=== PATIENT | female | born 1970 | race African-American/Black ===

== ENCOUNTER 2016-09-06 11:47 | Outpatient (CLI) | payer BC, MEDICAID ==
[2016-09-06 12:40] LABS: Hemoglobin A1c 11.1 % (4.0-6.0)
[2016-09-06 13:32] LABS: ALT (SGPT) 10 U/L (0-55); AST (SGOT) 17 U/L (5-34); Albumin 2.7 g/dL (3.5-5.0); Alkaline Phosphatase 133 U/L (40-150); Anion Gap 15 mmol/L (10-20); BUN (Urea Nitrogen) 16 mg/dL (7.0-18.7); Bilirubin, Total Less than 0.3 mg/dL (0.2-1.2); Calc. Creatinine Clearance 0 mL/min (70-130); Calcium 9.1 mg/dL (7.8-10.44); Carbon Dioxide 22 mmol/L (22-29); Cardiac Risk 3.1 (Less than 4.5); Chloride 103 mmol/L (98-107); Cholesterol 172 mg/dL (< 200 Desired); Estimated GFR-MDRD 72; Glucose 304 mg/dL (70-105); HDL Cholesterol 55 mg/dL (>60 Neg Risk); LDL Cholesterol, Calculated 92 mg/dL; Potassium 4.3 mmol/L (3.5-5.1); Protein, Total 6.7 g/dL (6.0-8.3); Sodium 136 mmol/L (136-145); Triglycerides 123 mg/dL (Less than 150)
[2016-09-06 18:56] LABS: Creatinine, Urine 84.65 mg/dL (47-110)
[2016-09-06 19:02] LABS: Protein, Urine Random Quant 684 mg/dL
[2016-09-06 19:03] LABS: Microalbumin Urine Greater than 200.0 mg/dL (0.5-50.0); Microalbumin/Creat Ratio 2362.7 mg/g (Less than 30)
== END 2016-09-06 11:48 | disposition home or self-care (01) ==
LOC: MADLABBHPM 11:47
PROVIDERS: ATTEND Internal Medicine Nephrology
DX: N18.1 Chronic kidney disease, stage 1 (principal); E11.65 Type 2 diabetes mellitus with hyperglycemia
CPT/HCPCS: 36415; 80053; 80061; 82043; 83036; 84156

== ENCOUNTER 2016-11-24 07:41 | Outpatient (CLI) | payer BC ==
[2016-11-24 17:32] LABS: Creatinine, Urine 119.51 mg/dL (47-110)
== END 2016-11-24 07:42 | disposition home or self-care (01) ==
LOC: MADLAB 07:41
PROVIDERS: ATTEND Family Medicine
DX: N18.1 Chronic kidney disease, stage 1 (principal); R80.9 Proteinuria, unspecified
CPT/HCPCS: 36415; 82570; 84156

== ENCOUNTER 2017-03-16 08:16 | Outpatient (CLI) | payer BC ==
[2017-03-16 13:55] LABS: Anion Gap 14 mmol/L (10-20); BUN (Urea Nitrogen) 16 mg/dL (7.0-18.7); Calc. Creatinine Clearance 0 mL/min (70-130); Calcium 9.7 mg/dL (7.8-10.44); Carbon Dioxide 22 mmol/L (22-29); Chloride 106 mmol/L (98-107); Estimated GFR-MDRD 88; Glucose 147 mg/dL (70-105); Potassium 3.9 mmol/L (3.5-5.1); Sodium 138 mmol/L (136-145)
== END 2017-03-16 08:17 | disposition home or self-care (01) ==
LOC: MADLAB 08:16
PROVIDERS: ATTEND Internal Medicine Nephrology
DX: N18.1 Chronic kidney disease, stage 1 (principal)
CPT/HCPCS: 36415; 80048

== ENCOUNTER 2017-03-18 02:42 | Emergency (ER) | payer BC ==
[2017-03-18] MEDS ORDERED: HYDROcodone/Acetaminophen 10/325 mg Tablet ONE (03:10)
[2017-03-18] MEDS ORDERED: predniSONE 20 MG TAB ONE (03:10)
== END 2017-03-18 03:21 | disposition home or self-care (01) ==
LOC: MADERS 02:42
DX: M54.42 Lumbago with sciatica, left side (principal); E11.9 Type 2 diabetes mellitus without complications; I10 Essential (primary) hypertension; Z79.4 Long term (current) use of insulin; Z79.899 Other long term (current) drug therapy; Z79.82 Long term (current) use of aspirin
CPT/HCPCS: 99283; J7506

== ENCOUNTER 2017-11-28 09:57 | Outpatient (CLI) | payer BC ==
[2017-11-28 11:21] LABS: Anion Gap 17 mmol/L (10-20); BUN (Urea Nitrogen) 67 mg/dL (7.0-18.7); Calc. Creatinine Clearance 0 mL/min (70-130); Calcium 9.4 mg/dL (7.8-10.44); Carbon Dioxide 23 mmol/L (22-29); Chloride 104 mmol/L (98-107); Estimated GFR-MDRD 41; Glucose 219 mg/dL (70-105); Sodium 140 mmol/L (136-145)
[2017-11-28 17:58] LABS: Creatinine, Urine 64.56 mg/dL (47-110)
== END 2017-11-28 09:58 | disposition home or self-care (01) ==
LOC: MADLAB 09:57
PROVIDERS: ATTEND Internal Medicine Nephrology
DX: N18.2 Chronic kidney disease, stage 2 (mild) (principal)
CPT/HCPCS: 36415; 80048; 82570; 84156

== ENCOUNTER 2017-12-03 08:33 | Outpatient (CLI) | payer MEDICARE, BC ==
--- NOTE | 2017-12-03 10:12 | ULT ---
ULTRASOUND RETROPERITONEUM COMPLETE: (RENAL) DATE: 12-03-17 HISTORY: 47-year-old female with chronic kidney disease. FINDINGS: The right kidney measures 11.5 x 5 x 5.5 cm. The left kidney measures 11 x 6 x 5.5 cm. Both kidneys have normal cortical thickness and normal cortical echogenicity. There is no hydronephrosis. Curso ry images of the urinary bladder demonstrate no gross abnormality. IMPRESSION: Normal. michela POS: JOSE
== END 2017-12-03 08:34 | disposition home or self-care (01) ==
LOC: MADULT 08:33
PROVIDERS: ATTEND Internal Medicine Nephrology
DX: N18.3 Chronic kidney disease, stage 3 (moderate) (principal)
CPT/HCPCS: 76770

== ENCOUNTER 2018-01-03 14:17 | Outpatient (CLI) | payer MEDICARE, BC ==
[2018-01-03 14:39] LABS: Hemoglobin 9.9 g/dL (12.0-16.0)
[2018-01-03 14:58] LABS: Anion Gap 18 mmol/L (10-20); BUN (Urea Nitrogen) 31 mg/dL (7.0-18.7); Calc. Creatinine Clearance 0 mL/min (70-130); Calcium 9.1 mg/dL (7.8-10.44); Carbon Dioxide 21 mmol/L (22-29); Chloride 106 mmol/L (98-107); Estimated GFR-MDRD 61; Glucose 168 mg/dL (70-105); Potassium 3.7 mmol/L (3.5-5.1); Sodium 141 mmol/L (136-145)
== END 2018-01-03 14:18 | disposition home or self-care (01) ==
LOC: MADLABBHPM 14:17
PROVIDERS: ATTEND Internal Medicine Nephrology
DX: N18.1 Chronic kidney disease, stage 1 (principal); D63.1 Anemia in chronic kidney disease
CPT/HCPCS: 36415; 80048; 85014; 85018

== ENCOUNTER 2019-09-20 21:58 | Emergency (ER) | payer BC, OTHER ==
[2019-09-20] MEDS ORDERED: Ketorolac Tromethamine 30 MG/ML VIAL ONE (22:29)
[2019-09-20 22:42] LABS: Pregnancy Test - Urine (BHCG) Negative (Negative); Pregu Control Background? CLEAR/WHITE (CLR/WHITE); Pregu Control Bar Appear? YES (CONTROL BAR); Specific Gravity 1.025 (1.002-1.036)
[2019-09-20 22:43] LABS: Bilirubin Negative (Negative); Blood, Urine Small (Negative); Clarity Cloudy (Clear); Glucose, Urine (Dipstick) 500 mg/dL (Negative); Leukocyte Moderate (Negative); Nitrite Negative (Negative); Protein, Urine (Dipstick) > or equal to 300 mg/dL (Neg-Trace); Urobilinogen 0.2 mg/dL (Less than 2)
[2019-09-20 22:46] LABS: Hemoglobin 9.8 g/dL (12.0-16.0); Mean Corpuscular Hemoglobin 23.9 pg (27.0-31.0); Mean Corpuscular Volume 82.3 fL (78.0-98.0); Mean Platelet Volume 6.5 fL (7.4-10.4); Platelet Count 413 thou/uL (130-400); RBC Distribution Width 14.9 % (11.5-14.5); Red Blood Cell (RBC) Count 4.12 mill/uL (4.20-5.40); White Blood Cell (WBC) Count 12.6 thou/uL (4.8-10.8)
[2019-09-20 22:47] LABS: Bacteria/HPF 4+ HPF (None Seen); WBC/HPF Greater than 50 HPF (0-3)
[2019-09-20 22:48] LABS: Mucous/LPF Rare LPF (<2+)
[2019-09-20 22:58] LABS: Anisocytosis SLIGHT = 6-15 cells (100X) (0-5/hpf); Eosinophils 4 % (0-10); Hypochromia SLIGHT = 6-15 cells (100X) (0-5/hpf); Lymphocytes 37 % (21-51); MDiff Complete? YES; Monocytes 3 % (0-10); Neutrophil 55 % (42-75); Platelet Morphology Comment Appears Increased; Small Platelets SLIGHT
[2019-09-20 22:59] LABS: ALT (SGPT) 9 U/L (8-55); AST (SGOT) 10 U/L (5-34); Albumin 3.3 g/dL (3.5-5.0); Alkaline Phosphatase 142 U/L (40-110); Anion Gap 12 mmol/L (10-20); BUN (Urea Nitrogen) 18 mg/dL (7.0-18.7); Bilirubin, Total 0.2 mg/dL (0.2-1.2); Calc. Creatinine Clearance 0 mL/min (70-130); Calcium 8.8 mg/dL (7.8-10.44); Carbon Dioxide 21 mmol/L (22-29); Chloride 110 mmol/L (98-107); Estimated GFR-MDRD 52; Globulin 4.3 g/dL (2.4-3.5); Glucose 278 mg/dL (70-105); Protein, Total 7.6 g/dL (6.0-8.3); Sodium 139 mmol/L (136-145)
[2019-09-20] MEDS ORDERED: Ciprofloxacin 500 MG TAB ONE ×2 (23:02→23:03)
== END 2019-09-20 23:10 | disposition home or self-care (01) ==
LOC: MADERS 21:58
DX: N39.0 Urinary tract infection, site not specified (principal); E78.5 Hyperlipidemia, unspecified; E78.00 Pure hypercholesterolemia, unspecified; E11.9 Type 2 diabetes mellitus without complications; I10 Essential (primary) hypertension; Z79.82 Long term (current) use of aspirin; Z79.899 Other long term (current) drug therapy
CPT/HCPCS: 80053; 81003; 81015; 81025; 85025; 96374; J1885

== ENCOUNTER 2020-05-17 20:44 | Emergency (ER) | payer BC, OTHER ==
[~2020-05-17 20:44] MED LIST: Iopamidol 370 76% 125 ML VIAL FS ONE; Sodium Chloride 0.9% 100 ML BAG ONE
--- NOTE | 2020-05-17 21:13 | RAD ---
Chest AP view INDICATION: Chest pain COMPARISON: September 10, 2012 FINDINGS: Lungs: The lungs are clear Cardiac silhouette: The cardiomediastinal silhouette appears within normal limits. Pulmonary vasculature: Normal Pleural spaces: No pleural effusion or pneumothorax is demonstrated. Upper abdomen: No abnormality seen. Osseous structures: There is been interval placement of an ACDF. The inferior portion of the plate i s visible at the C6 vertebral level. Additional findings: None. IMPRESSION: No acute cardiopulmonary abnormality.
[2020-05-17] MEDS ORDERED: Nitroglycerin 2% Ointment 1 INCH/1 GM Packet ONE (21:37)
[2020-05-17] MEDS ORDERED: Nitroglycerin 0.4 MG TAB 1 EACH ONE (21:37)
[2020-05-17] MEDS ORDERED: Aspirin 325 MG TAB ONE (21:37)
[2020-05-17] MEDS ORDERED: Mag-Al Plus 1200 MG/1200 MG/120 MG/30 ML UDCUP ONE (21:38)
[2020-05-17] MEDS ORDERED: Lidocaine Viscous Sol 2% 15 ml UD Cup ONE (21:38)
[2020-05-17 21:55] LABS: #Basophils 0.1 thou/uL (0.0-0.2); #Eosinphils 0.2 thou/uL (0.0-0.7); #Lymphocytes 4.4 thou/uL (1.20-3.40); #Monocytes 0.8 thou/uL (0.11-0.59); #Neutrophils 5.9 thou/uL (1.40-6.50); %Basophils 0.8 % (0.0-1.0); %Lymphocytes 38.5 % (21.0-51.0); %Monocytes 6.8 % (0.0-10.0); %Neutrophils 51.9 % (42.0-75.0); Anisocytosis MODERATE=16-30 cells (100X) (0-5/hpf); Burr Cells SLIGHT = 2-5 cells (100X) (0-1/hpf); Hemoglobin 9.5 g/dL (12.0-16.0); Hypochromia SLIGHT = 6-15 cells (100X) (0-5/hpf); MDiff Complete? YES; Mean Corpuscular HGB CONC 30.6 g/dL (32.0-36.0); Mean Corpuscular Hemoglobin 24.7 pg (27.0-31.0); Mean Corpuscular Volume 80.8 fL (78.0-98.0); Mean Platelet Volume 6.4 fL (7.4-10.4); Microcytosis SLIGHT = 6-15 cells (100X) (0-5/hpf); Platelet Count 457 thou/uL (130-400); Platelet Morphology Comment Appears Increased; Poikilocytosis MODERATE=16-30 cells (100X) (0-5/hpf); RBC Distribution Width 15.3 % (11.5-14.5); Red Blood Cell (RBC) Count 3.86 mill/uL (4.20-5.40); White Blood Cell (WBC) Count 11.4 thou/uL (4.8-10.8)
[2020-05-17 21:58] LABS: ALT (SGPT) 9 U/L (8-55); AST (SGOT) 7 U/L (5-34); Albumin 3.4 g/dL (3.5-5.0); Alkaline Phosphatase 110 U/L (40-110); Anion Gap 16 mmol/L (10-20); BUN (Urea Nitrogen) 38 mg/dL (7.0-18.7); Bilirubin, Total Less than 0.2 mg/dL (0.2-1.2); CK (CPK) 118 U/L (29-168); Calc. Creatinine Clearance 0 mL/min (70-130); Calcium 8.9 mg/dL (7.8-10.44); Carbon Dioxide 25 mmol/L (22-29); Chloride 102 mmol/L (98-107); Estimated GFR-MDRD 41; Globulin 4.1 g/dL (2.4-3.5); Glucose 333 mg/dL (70-105); Lipase 29 U/L (8-78); Potassium 3.8 mmol/L (3.5-5.1); Protein, Total 7.5 g/dL (6.0-8.3); Sodium 139 mmol/L (136-145)
[2020-05-17] MEDS ORDERED: Sodium Chloride 0.9% 1,000 ML ONE (22:39)
--- NOTE | 2020-05-17 23:22 | CT ---
CTA Angio Chest W WO Con 05/17/2020 9:57 PM Indication: 41-year-old female with history of chest pain and elevated d-dimer Technique: Multiple CTA images were obtained of the thorax with IV contrast. 3-D rendering: MIP alicia nstructed images were created and reviewed. Comparison: No relevant prior studies available. Findings: Pulmonary arteries: Respiratory motion artifact slightly limits evaluation of the segmental pulmonar y arterial branches of both lower lobes. No definite central pulmonary embolus is evident. Heart and Aorta: Normal appearing. Mediastinum:Normal appearing. No enlarged lymph nodes. Lungs:There is a 5 mm groundglass pulmonary nodule in the right upper lobe on image 44 series 3. Ther e is a calcified granuloma in the right middle lobe. Pleural space: Clear. Upper Abdomen: There is fatty infiltration of the liver. Small suspected cysts are seen involving alda th kidneys. Osseous Structures: There is scattered degenerative and osteoarthritic change present. Soft tissues:No abnormality. Other findings:None. Impression: 1. No definite central pulmonary embolus is evident. 2. Groundglass pulmonary nodule the right upper lobe. Findings may reflect an area of focal pneumonit is or nonspecific groundglass pulmonary nodule. Recommend short-term CT follow-up in 6-8 weeks to document stability versus resolution. 3. Fatty liver.
[2020-05-18 17:25] LABS: SARS-CoV-2 MS2 Positive; SARS-CoV-2 N Gene Negative; SARS-CoV-2 S Gene Negative; SARS-CoV-2 by NAA Not Detected (NotDetected); SARS-CoV-2 orf1ab Negative
== END 2020-05-17 23:56 | disposition home or self-care (01) ==
LOC: MADERS 20:44
DX: R07.9 Chest pain, unspecified (principal); E78.5 Hyperlipidemia, unspecified; E78.00 Pure hypercholesterolemia, unspecified; E11.9 Type 2 diabetes mellitus without complications; I10 Essential (primary) hypertension
CPT/HCPCS: 36415; 71045; 71275; 82550; 83690; 84443; 84484; 85025; 85379; 87635; 93005; J3490; J7050; Q9967; U0003

== ENCOUNTER 2020-07-18 08:17 | Outpatient (CLI) | payer BC, MEDICARE, OTHER ==
[2020-07-18 14:26] LABS: Hemoglobin A1c 11.5 % (4.0-6.0)
[2020-07-18 14:42] LABS: ALT (SGPT) 9 U/L (8-55); AST (SGOT) 8 U/L (5-34); Albumin 3.8 g/dL (3.5-5.0); Alkaline Phosphatase 133 U/L (40-110); Anion Gap 17 mmol/L (10-20); BUN (Urea Nitrogen) 57 mg/dL (7.0-18.7); Bilirubin, Total 0.3 mg/dL (0.2-1.2); Calc. Creatinine Clearance 0 mL/min (70-130); Calcium 9.3 mg/dL (7.8-10.44); Carbon Dioxide 25 mmol/L (22-29); Cardiac Risk 5.1 (Less than 4.5); Chloride 100 mmol/L (98-107); Cholesterol 221 mg/dl (< 200 Desired); Globulin 3.8 g/dL (2.4-3.5); Glucose 381 mg/dL (70-105); HDL Cholesterol 43 mg/dL (>60 Neg Risk); LDL Cholesterol, Calculated 148 mg/dL; Potassium 4.6 mmol/L (3.5-5.1); Protein, Total 7.6 g/dL (6.0-8.3); Sodium 137 mmol/L (136-145); Triglycerides 152 mg/dL (Less than 150)
[2020-07-18 16:54] LABS: Follow-up Chemistry Comp? YES; Follow-up Result - Chemistry REPORT FAXED
== END 2020-07-18 08:18 | disposition home or self-care (01) ==
LOC: MADLAB 08:17
PROVIDERS: ATTEND Internal Medicine Endocrinology, Diabetes & Metabolism
DX: E11.65 Type 2 diabetes mellitus with hyperglycemia (principal)
CPT/HCPCS: 36415; 80053; 80061; 83036

== ENCOUNTER 2021-03-11 22:26 | Emergency (ER) | payer MEDICARE, OTHER ==
[2021-03-11 23:01] LABS: Bilirubin Negative (Negative); Blood, Urine Trace (Negative); Clarity Clear (Clear); Glucose, Urine (Dipstick) >=1000 mg/dL (Negative); Ketone, Urine Negative (Negative); Leukocyte Negative (Negative); Nitrite Negative (Negative); Protein, Urine (Dipstick) > or equal to 300 mg/dL (Neg-Trace); Specific Gravity, Urine 1.015 (1.005-1.030); Urobilinogen 0.2 mg/dL (Less than 2)
[2021-03-11 23:03] LABS: Pregnancy Test - Urine (BHCG) Negative (Negative); Specific Gravity 1.015 (1.002-1.036)
[2021-03-11 23:04] LABS: Pregu Control Background? CLEAR/WHITE (CLR/WHITE); Pregu Control Bar Appear? YES (CONTROL BAR)
[2021-03-11 23:06] LABS: Bacteria/HPF 2+ HPF (None Seen); WBC/HPF 21-50 HPF (0-3)
[2021-03-11 23:13] LABS: ALT (SGPT) 13 U/L (8-55); AST (SGOT) 9 U/L (5-34); Albumin 3.4 g/dL (3.5-5.0); Alkaline Phosphatase 135 U/L (40-110); Anion Gap 14 mmol/L (10-20); BUN (Urea Nitrogen) 20 mg/dL (7.0-18.7); Bilirubin, Total 0.2 mg/dL (0.2-1.2); Calc. Creatinine Clearance 0 mL/min (70-130); Calcium 9.5 mg/dL (7.8-10.44); Carbon Dioxide 25 mmol/L (22-29); Chloride 104 mmol/L (98-107); Eosinophils 2 % (0-10); Globulin 3.8 g/dL (2.4-3.5); Glucose 325 mg/dL (70-105); Hemoglobin 11.1 g/dL (12.0-16.0); Lymphocytes 30 % (21-51); MDiff Complete? YES; Mean Corpuscular HGB CONC 30.1 g/dL (32.0-36.0); Mean Corpuscular Hemoglobin 26.4 pg (27.0-31.0); Mean Corpuscular Volume 87.8 fL (78.0-98.0); Monocytes 7 % (0-10); Neutrophil 61 % (42-75); Platelet Count 396 thou/uL (130-400); Platelet Morphology Comment Appears Adequate; Potassium 3.6 mmol/L (3.5-5.1); Protein, Total 7.2 g/dL (6.0-8.3); RBC Distribution Width 14.5 % (11.5-14.5); RBC Morphology Normal; Sodium 139 mmol/L (136-145)
[2021-03-11] MEDS ORDERED: Ketorolac Tromethamine 30 MG/ML VIAL ONE (23:21)
== END 2021-03-11 23:26 | disposition home or self-care (01) ==
LOC: MADERS 22:26
DX: S33.5XXA Sprain of ligaments of lumbar spine, initial encounter (principal); E11.9 Type 2 diabetes mellitus without complications; E78.00 Pure hypercholesterolemia, unspecified; E66.9 Obesity, unspecified; Z79.899 Other long term (current) drug therapy; Z79.82 Long term (current) use of aspirin; Z79.4 Long term (current) use of insulin; X50.1XXA Overexertion from prolonged static or awkward postures, initial encounter
CPT/HCPCS: 80053; 81003; 81015; 81025; 85025; 96374; J1885

== ENCOUNTER 2021-11-18 12:13 | Emergency (ER) | payer BC, MEDICARE, OTHER ==
[2021-11-18 13:23] LABS: Anion Gap 16 mmol/L (10-20); BUN (Urea Nitrogen) 31 mg/dL (7.0-18.7); Calc. Creatinine Clearance 0 mL/min (70-130); Calcium 9.6 mg/dL (7.8-10.44); Carbon Dioxide 29 mmol/L (22-29); Chloride 103 mmol/L (98-107); Magnesium 1.9 mg/dL (1.6-2.6); Potassium 3.1 mmol/L (3.5-5.1); Sodium 145 mmol/L (136-145)
[2021-11-18 13:37] LABS: Glucose 42 mg/dL (70-105)
[2021-11-18] MEDS ORDERED: Potassium Chloride 20 MEQ/100 ML PREMIX BAG ONE (13:40)
[2021-11-18] MEDS ORDERED: Potassium Chloride 20 MEQ TAB ONE (13:40)
[2021-11-18] MEDS ORDERED: D5 1/2 NS w/20 mEq KCL 1,000 ML ONE (13:42)
[2021-11-18 13:45] LABS: Eosinophils 2 % (0-10); Hemoglobin 12.2 g/dL (12.0-16.0); Lymphocytes 35 % (21-51); MDiff Complete? YES; Mean Corpuscular HGB CONC 32.7 g/dL (32.0-36.0); Mean Corpuscular Hemoglobin 27.7 pg (27.0-31.0); Mean Corpuscular Volume 84.9 fL (78.0-98.0); Mean Platelet Volume 9.1 fL (7.4-10.4); Monocytes 3 % (0-10); Neutrophil 48 % (42-75); Platelet Count 421 thou/uL (130-400); Platelet Morphology Comment Appears Increased; RBC Distribution Width 14.2 % (11.5-14.5); RBC Morphology Normal; Reactive Lymphocytes 12 % (0-10); White Blood Cell (WBC) Count 11.9 thou/uL (4.8-10.8)
== END 2021-11-18 15:54 | disposition home or self-care (01) ==
LOC: MADERS 12:13
DX: E87.6 Hypokalemia (principal); E11.649 Type 2 diabetes mellitus with hypoglycemia without coma; E78.00 Pure hypercholesterolemia, unspecified; E66.9 Obesity, unspecified; Z79.899 Other long term (current) drug therapy
CPT/HCPCS: 36416; 83735; 85025; 99284; J3480

== ENCOUNTER 2021-11-28 03:12 | Emergency (ER) | payer BC, MEDICARE, OTHER ==
[2021-11-28] MEDS ORDERED: Adenosine 6 MG/2 ML VIAL ONE (04:00)
[2021-11-28] MEDS ORDERED: Acetaminophen 500 MG TAB ONE (04:00)
== END 2021-11-28 04:07 | disposition home or self-care (01) ==
LOC: MADERS 03:12
DX: E11.40 Type 2 diabetes mellitus with diabetic neuropathy, unspecified (principal)
CPT/HCPCS: 99283; J0153

== ENCOUNTER 2022-03-16 19:52 | Emergency (ER) | payer BC, MEDICARE, OTHER | END 2022-03-16 21:14 | disposition home or self-care (01) | LOC: MADERS 19:52 | DX: S70.01XA Contusion of right hip, initial encounter (principal); E11.9 Type 2 diabetes mellitus without complications; Z79.4 Long term (current) use of insulin; W50.0XXA Accidental hit or strike by another person, initial encounter ==

== ENCOUNTER 2022-10-04 20:50 | Emergency (ER) | payer BC, MEDICARE, OTHER ==
[2022-10-04] MEDS ORDERED: Lactated Ringer's 1,000 ML ONE (23:04)
[2022-10-04 23:26] LABS: CO2 Tension (PvCO2) 42.4 mmHg (42.0-51.0)
[2022-10-04 23:27] LABS: Base Excess-Venous 3.6 mmol/L (-2.0 to 3.0); Bicarbonate (HCO3v) 28.4 mmol/L (22.0-28.0); Calcium, Ionized 1.05 mmol/L (1.15-1.33); Chloride 82 mmol/L (98-107); Hemoglobin - Calc 16.8 g/dL (12.0-16.0); Potassium 3.1 mmol/L (3.5-5.1); Sodium 126 mmol/L (138-145); T. Carbon Dioxide 29.7 mmol/L (22.0-28.0); vO2 Saturation-calc 83.1 % (60.0-85.0)
[2022-10-04 23:35] LABS: Hemoglobin 14.6 g/dL (12.0-16.0); Lymphocytes 55 % (21-51); MDiff Complete? YES; Mean Corpuscular HGB CONC 32.8 g/dL (32.0-36.0); Mean Corpuscular Hemoglobin 26.3 pg (27.0-31.0); Mean Corpuscular Volume 80.2 fl (78.0-98.0); Mean Platelet Volume 8.6 fL (7.4-10.4); Monocytes 7 % (0-10); Neutrophil 36 % (42-75); Platelet Count 458 10x3/uL (130-400); RBC Distribution Width 11.9 % (11.5-14.5); RBC Morphology Normal; Reactive Lymphocytes 1 % (0-10); Red Blood Cell (RBC) Count 5.54 mill/uL (4.20-5.40); White Blood Cell (WBC) Count 13.3 10x3/uL (4.8-10.8)
[2022-10-04 23:39] LABS: ALT (SGPT) 10 U/L (8-55); AST (SGOT) 11 U/L (5-34); Albumin 3.9 g/dL (3.5-5.0); Alkaline Phosphatase 173 U/L (40-110); Anion Gap 22 mmol/L (10-20); BUN (Urea Nitrogen) 56 mg/dL (9.8-20.1); Bilirubin, Total 0.3 mg/dL (0.2-1.2); Calc. Creatinine Clearance 0 mL/min (70-130); Calcium 10.2 mg/dL (7.8-10.44); Carbon Dioxide 26 mmol/L (22-29); Chloride 82 mmol/L (98-107); Estimated GFR 21; Globulin 4.7 g/dL (2.4-3.5); Magnesium 2.2 mg/dL (1.6-2.6); Potassium 3.2 mmol/L (3.5-5.1); Protein, Total 8.6 g/dL (6.0-8.3); Sodium 127 mmol/L (136-145)
[2022-10-04 23:41] LABS: Glucose 408 mg/dL (70-105)
[2022-10-04 23:42] LABS: Phosphorus 3.1 mg/dL (2.3-4.7)
[2022-10-04 23:52] LABS: Acetaminophen Less than 10.0 mcg/mL (10.0-30.0); Alcohol Less than 10 mg/dL (Less than 10); Lipase 43 U/L (8-78); Salicylate Less than 8.0 mg/dL (15.0-30.0)
[2022-10-05] MEDS ORDERED: Lactated Ringer's 1,000 ML ONE (01:04)
[2022-10-05] MEDS ORDERED: Potassium Chloride 20 MEQ TAB ONE (01:10)
[2022-10-05] MEDS ORDERED: Magnesium 2 GM/50 ML BAG (IN WATER) ONE (01:10)
[2022-10-05 03:46] LABS: Lactic Acid 2.2 mmol/L (0.5-2.2)
[2022-10-05 04:49] LABS: Bilirubin Negative (Negative); Blood, Urine Small (Negative); Clarity Cloudy (Clear); Glucose, Urine (Dipstick) 500 mg/dL (Negative); Ketone, Urine Negative (Negative); Leukocyte Moderate (Negative); Nitrite Negative (Negative); Protein, Urine (Dipstick) 100 mg/dL (Neg-Trace); Urobilinogen 0.2 mg/dL (Less than 2)
[2022-10-05 04:50] LABS: Pregnancy Test - Urine (BHCG) Negative (Negative); Pregu Control Background? CLEAR/WHITE (CLR/WHITE); Pregu Control Bar Appear? YES (CONTROL BAR); Specific Gravity 1.011 (1.002-1.036)
[2022-10-05 04:56] LABS: Bacteria/HPF 4+ HPF (None Seen); RBC/HPF 0-3 HPF (0-3); Squamous Epithelial 0-3 HPF (0-3); Transitional Epithelial 0-3 HPF (None Seen); WBC/HPF Greater Than 50 HPF (0-3)
[2022-10-05 05:05] LABS: Amphetamine Not Detected (NotDetected); Barbiturates Screen Not Detected (NotDetected); Benzodiazepine Screen Not Detected (NotDetected); Cocaine Metabolite Screen Not Detected (NotDetected); Medtox Control Line Valid? VALID (VALID); Methadone Not Detected (NotDetected); Methamphetamine Not Detected (NotDetected); Opiate Screen Not Detected (NotDetected); Oxycodone Screen Not Detected (NotDetected); Phencyclidine (PCP) Not Detected (NotDetected); THC/Cannabinoid Screen Not Detected (NotDetected); Tricyclic Screen Not Detected (NotDetected)
[2022-10-05] MEDS ORDERED: Sodium Chloride 0.9% 100 ML ONE (05:17)
[2022-10-05] MEDS ORDERED: cefTRIAXone\\ROCEPHIN 2 GM VIAL ONE (05:17)
== END 2022-10-05 06:59 | disposition home or self-care (01) ==
LOC: MADERS 20:50
DX: E86.0 Dehydration (principal); E11.65 Type 2 diabetes mellitus with hyperglycemia; E87.6 Hypokalemia; E87.20 Acidosis, unspecified; E11.22 Type 2 diabetes mellitus with diabetic chronic kidney disease; N18.9 Chronic kidney disease, unspecified; N17.9 Acute kidney failure, unspecified; R25.2 Cramp and spasm; N39.0 Urinary tract infection, site not specified; E66.9 Obesity, unspecified; E78.00 Pure hypercholesterolemia, unspecified; Z79.899 Other long term (current) drug therapy; Z79.4 Long term (current) use of insulin
CPT/HCPCS: 36416; 71045; 80053; 80306; 80307; 81003; 81015; 81025; 82010; 82330; 82803; 83605; 83690; 83735; 84100; 84484; 85025; 87040; 87077; 87086; 87186; 93005; 96361; 96365; 96367; J0696; J3475; J3490; J7120

== ENCOUNTER 2023-11-26 11:21 | Emergency (ER) | payer MEDICARE, OTHER ==
[~2023-11-26 11:21] MED LIST changes: +Iopamidol 370 76% 100 ML VIAL ONE; -Iopamidol 370 76% 125 ML VIAL FS ONE
[2023-11-26 12:04] LABS: Hematocrit 37.9 % (36.0-47.0); Hemoglobin 10.8 g/dL (12.0-16.0); Mean Corpuscular HGB CONC 28.6 g/dL (32.0-36.0); Mean Corpuscular Hemoglobin 23.9 pg (27.0-31.0); Mean Corpuscular Volume 83.6 fl (78.0-98.0); Mean Platelet Volume 6.2 fL (7.4-10.4); Platelet Count 391 10x3/uL (130-400); Red Blood Cell (RBC) Count 4.53 mill/uL (4.20-5.40); White Blood Cell (WBC) Count 10.7 10x3/uL (4.8-10.8)
[2023-11-26 12:05] LABS: Anion Gap 18 mmol/L (10-20); BUN (Urea Nitrogen) 56 mg/dL (9.8-20.1); Calc. Creatinine Clearance 0 mL/min (70-130); Calcium 9.4 mg/dL (7.8-10.44); Carbon Dioxide 26 mmol/L (22-29); Chloride 102 mmol/L (98-107); Estimated GFR 19; Glucose 273 mg/dL (70-105); Potassium 3.9 mmol/L (3.5-5.1); Sodium 142 mmol/L (136-145)
[2023-11-26 12:10] LABS: Anisocytosis SLIGHT = 6-15 cells (100X) (0-5/hpf); Band 1 % (5-11); Eosinophils 2 % (0-10); Lymphocytes 32 % (21-51); MDiff Complete? YES; Manual Diff?? YES; Monocytes 5 % (0-10); Neutrophil 60 % (42-75); Platelet Adequacy Comment Appears Adequate
[2023-11-26 12:11] LABS: Troponin I 0.014 ng/mL (< 0.028)
[2023-11-26] MEDS ORDERED: Sodium Chloride 0.9% 500 ML ONE (12:50)
== END 2023-11-26 13:44 | disposition home or self-care (01) ==
LOC: MADERS 11:21
DX: R07.89 Other chest pain (principal); I12.9 Hypertensive chronic kidney disease with stage 1 through stage 4 chronic kidney disease, or unspecified chronic kidney disease; E11.22 Type 2 diabetes mellitus with diabetic chronic kidney disease; N18.9 Chronic kidney disease, unspecified; E78.00 Pure hypercholesterolemia, unspecified; Z79.82 Long term (current) use of aspirin; Z79.4 Long term (current) use of insulin; Z79.899 Other long term (current) drug therapy
CPT/HCPCS: 71045; 71275; 80048; 83880; 84484; 85025; 85379; 93005; J3490; J7030; Q9967

== ENCOUNTER 2024-02-28 09:38 | Emergency (ER) | payer OTHER ==
[2024-02-28 10:26] LABS: PTT 27.3 sec (22.9-36.1); Prothrombin Time 13.6 sec (12.0-14.7)
[2024-02-28] MEDS ORDERED: Ondansetron PF 4 MG/2 ML Vial ONE (10:27)
[2024-02-28] MEDS ORDERED: Sodium Chloride 0.9% 0 ML ONE (10:27)
[2024-02-28] MEDS ORDERED: Ondansetron ODT 4 MG TAB ONE (10:28)
[2024-02-28 10:37] LABS: ALT (SGPT) 12 U/L (8-55); AST (SGOT) 9 U/L (5-34); Alkaline Phosphatase 129 U/L (40-110); Anion Gap 16 mmol/L (10-20); BUN (Urea Nitrogen) 34 mg/dL (9.8-20.1); Bilirubin, Total 0.3 mg/dL (0.2-1.2); Calc. Creatinine Clearance 0 mL/min (70-130); Calcium 9.4 mg/dL (7.8-10.44); Carbon Dioxide 22 mmol/L (22-29); Chloride 106 mmol/L (98-107); Estimated GFR 22; Globulin 4.5 g/dL (2.4-3.5); Glucose 207 mg/dL (70-105); Lipase 24 U/L (8-78); Protein, Total 7.5 g/dL (6.0-8.3); Sodium 140 mmol/L (136-145); Troponin I 0.015 ng/mL (< 0.028)
[2024-02-28 10:39] LABS: #Basophils 0.1 thou/uL (0.0-0.2); #Eosinphils 0.2 thou/uL (0.0-0.7); #Lymphocytes 2.5 thou/uL (1.20-3.40); #Monocytes 0.6 thou/uL (0.11-0.59); #Neutrophils 4.3 thou/uL (1.40-6.50); %Basophils 0.8 % (0.0-1.0); %Lymphocytes 32.9 % (21.0-51.0); %Monocytes 7.2 % (0.0-10.0); %Neutrophils 56.1 % (42.0-75.0); Hematocrit 37.1 % (36.0-47.0); Mean Corpuscular HGB CONC 29.6 g/dL (32.0-36.0); Mean Corpuscular Hemoglobin 24.5 pg (27.0-31.0); Mean Corpuscular Volume 83.1 fl (78.0-98.0); Mean Platelet Volume 6.1 fL (7.4-10.4); Platelet Count 307 10x3/uL (130-400); RBC Distribution Width 15.8 % (11.5-14.5); Red Blood Cell (RBC) Count 4.47 mill/uL (4.20-5.40); White Blood Cell (WBC) Count 7.7 10x3/uL (4.8-10.8)
[2024-02-28 10:40] LABS: Hypochromia SLIGHT = 6-15 cells (100X) (0-5/hpf); MDiff Complete? YES; Microcytosis SLIGHT = 6-15 cells (100X) (0-5/hpf)
== END 2024-02-28 11:12 | disposition home or self-care (01) ==
LOC: MADERS 09:38
DX: R11.0 Nausea (principal); R10.9 Unspecified abdominal pain; E11.9 Type 2 diabetes mellitus without complications; E78.5 Hyperlipidemia, unspecified; I10 Essential (primary) hypertension; Z79.899 Other long term (current) drug therapy; Z79.82 Long term (current) use of aspirin
CPT/HCPCS: 36415; 74022; 80053; 83690; 83880; 84484; 85025; 85610; 85730; 93005; J2405; J7030; Q0162